=== PATIENT | male | born 1995 | race Asian ===

== ENCOUNTER 2025-04-25 23:37 | Emergency (ER) | payer SELFPAY ==
[~2025-04-25] VITALS: Ht 175.3 cm; Wt 78.0 kg
[2025-04-25 23:41] VITALS: O2SAT 100
[2025-04-26 04:10] VITALS: BP 123/87; PULSE 91; RESP 15; TEMP 36.9; O2SAT 96
== END 2025-04-26 04:15 | disposition home or self-care (01) ==
LOC: ER 23:37
DX: F19.129 Other psychoactive substance abuse with intoxication, unspecified (principal); F31.9 Bipolar disorder, unspecified; R11.10 Vomiting, unspecified; R41.82 Altered mental status, unspecified
CPT/HCPCS: 99283; Z7610 ×2